=== PATIENT | female | born 1985 | race Caucasian/White ===

== ENCOUNTER 2017-09-09 12:00 | Inpatient (IN) | payer MEDICAID ==
[~2017-09-09] VITALS: Ht 167.6 cm; Wt 104.5 kg
[~2017-09-09 12:00] MED LIST: HYDR1TAB12 PO; IRON1TAB60 PO; LEVO50TA PO; PREN1TAB56 PO
[2017-09-10] MEDS ORDERED: OXYTOCIN 30U/ 0.9% NaCL 500ML 500 ML IV ONE (05:40)
[2017-09-10] MEDS ORDERED: OXYTOCIN 30U/ 0.9% NaCL 500ML 500 ML IV PRN (05:40)
[2017-09-10] MEDS ORDERED: NEWBORN KIT ONE (05:56)
[2017-09-10] MEDS ORDERED: ONDANSETRON 2MG/ML, 2ML IVPush PRN (06:00)
[2017-09-10] MEDS ORDERED: TERBUTALINE 1 MG/ML, 1ML IVPush PRN (06:00)
[2017-09-10] MEDS ORDERED: FENTANYL PF 100 MCG/2ML IVPush PRN (06:00)
[2017-09-10] MEDS ORDERED: CALCIUM CARBONATE 500 MG TAB.CHEW PO PRN ×2 (06:00→09:00)
[2017-09-10] MEDS ORDERED: FENTANYL PF 100 MCG/2ML IV PRN (06:00)
[2017-09-10] MEDS ORDERED: METOCLOPRAMIDE 5 MG/ML, 2ML IVPush PRN (06:00)
[2017-09-10] MEDS ORDERED: SODIUM CITRATE/CITRIC ACID 30 ML UDC PO PRN (06:00)
[2017-09-10 06:03] LABS: BASOPHILS # (AUTO) 0.02 x10^3/uL (0-0.1); BASOPHILS % (AUTO) 0 % (0-1); EOSINOPHILS # (AUTO) 0.06 x10^3/uL (0-0.4); EOSINOPHILS % (AUTO) 1 % (1-7); LYMPHOCYTES # (AUTO) 1.16 x10^3/uL (1-3.4); LYMPHOCYTES % (AUTO) 19 % (22-44); MD NO; MEAN CORPUSCULAR HEMOGLOBIN 33.5 pg (27.0-34.8); MEAN CORPUSCULAR HGB CONC 34.2 g/dL (32.4-35.8); MEAN CORPUSCULAR VOLUME 97.8 fL (80-100); MEAN PLATELET VOLUME 9.7 fL (7.4-10.4); MONOCYTES # (AUTO) 0.34 x10^3/uL (0.2-0.8); MONOCYTES % (AUTO) 6 % (2-9); NEUTROPHILS # (AUTO) 4.56 x10^3/uL (1.8-6.8); NEUTROPHILS % (AUTO) 74 % (42-75); PLATELET COUNT 133 x10^3/uL (130-400); RED BLOOD COUNT 4.23 x10^6/uL (3.82-5.3); RED CELL DISTRIBUTION WIDTH 13.9 % (9.6-15.2)
[2017-09-10] MEDS ORDERED: OXYTOCIN 30U/ 0.9% NaCL 500ML 500 ML ONE ×2 (06:11→21:07)
[2017-09-10] MEDS ORDERED: PLEASE ENTER HEIGHT AND WEIGHT MC SCH (07:00)
[2017-09-10] MEDS ORDERED: ACETAMINOPHEN 325 MG TABLET PO PRN ×2 (09:00)
[2017-09-10] MEDS ORDERED: ONDANSETRON 2MG/ML, 2ML IV PRN (09:00)
[2017-09-10] MEDS ORDERED: OXYcodone/APAP 5/325MG TABLET PO PRN ×2 (09:00)
[2017-09-10] MEDS ORDERED: MISOPROSTOL 200 MCG TABLET PR PRN (09:00)
[2017-09-10] MEDS ORDERED: MAGNESIUM HYDROXIDE 8%, 30ML UDC PO PRN (09:00)
[2017-09-10] MEDS ORDERED: DOCUSATE 100 MG CAPSULE PO PRN (09:00)
[2017-09-10] MEDS: PRENATAL VIT/IRON/FA 1 EACH TABLET PO SCH (09:00)
[2017-09-10] MEDS ORDERED: MEASLES,MUMPS&RUBELLA VACC/PF 0.5 ML SQ PRN (09:00)
[2017-09-10] MEDS ORDERED: DIPH,PERTUSS(ACELL),TET VAC/PF NC IM-VACC PRN (09:00)
[2017-09-10] MEDS ORDERED: RHOGAM FROM BLOOD BANK 1 NOTE EA IM/IV ONE (09:00)
[2017-09-10] MEDS: LACTATED RINGERS 1,000 ML IV SCH ×4 (09:59→21:56)
[2017-09-10] MEDS ORDERED: LACTATED RINGERS 1,000 ML INTUTE PRN (12:30)
[2017-09-10] MEDS ORDERED: LACTATED RINGERS 1,000 ML INTUTE SCH (12:30)
[2017-09-10] MEDS ORDERED: BUPIVACAINE/PF 0.25% ONE (13:54)
[2017-09-10] MEDS ORDERED: FENTANYL/BUPIV./NS/PF 250 ML EPIDCONT ONE (13:54)
[2017-09-10] MEDS ORDERED: FENTANYL/BUPIV./NS/PF 250 ML EPIDCONT SCH (13:56)
[2017-09-10] MEDS ORDERED: LACTATED RINGERS 1,000 ML IVBOLUS PRN (14:00)
[2017-09-10] MEDS ORDERED: NALOXONE 0.4 MG/ML, 1ML IVPush PRN (14:00)
[2017-09-10] MEDS ORDERED: EPHEDRINE 50 MG/ML, 1ML IVPush PRN (14:00)
[2017-09-10] MEDS ORDERED: LABETALOL 200 MG TABLET ONE (17:42)
[2017-09-10] MEDS: LABETALOL 200 MG TABLET PO SCH (17:44)
[2017-09-10] MEDS: D5%-LACTATED RINGERS 1,000 ML IV SCH ×2 (17:59→18:06)
[2017-09-10] MEDS: OXYTOCIN 30U/ 0.9% NaCL 500ML 500 ML IV SCH ×2 (18:44→21:12)
[2017-09-10] MEDS ORDERED: MISOPROSTOL 200 MCG TABLET ONE ×2 (19:10→22:14)
[2017-09-10] MEDS ORDERED: LIDOCAINE-MPF 1%, 5ML ONE (19:10)
[2017-09-10 19:41] VITALS: BP 132/78
[2017-09-10] MEDS ORDERED: IBUPROFEN 600 MG TABLET ONE (21:39)
[2017-09-10] MEDS: IBUPROFEN 600 MG TABLET PO PRN (21:41)
[2017-09-10 22:30] VITALS: BP 138/84
[2017-09-11] MEDS: D5%-LACTATED RINGERS 1,000 ML IV SCH ×2 (01:59→09:59)
[2017-09-11] MEDS: LACTATED RINGERS 1,000 ML IV SCH ×2 (01:59→09:59)
[2017-09-11] MEDS: IBUPROFEN 600 MG TABLET PO PRN ×2 (03:25→12:13)
[2017-09-11 03:29] VITALS: BP 142/89
[2017-09-11] MEDS: OXYTOCIN 30U/ 0.9% NaCL 500ML 500 ML IV SCH (04:42)
[2017-09-11 06:13] LABS: MEAN CORPUSCULAR HEMOGLOBIN 34.1 pg (27.0-34.8); MEAN CORPUSCULAR HGB CONC 34.5 g/dL (32.4-35.8); MEAN CORPUSCULAR VOLUME 99.1 fL (80-100); RED BLOOD COUNT 3.87 x10^6/uL (3.82-5.3); RED CELL DISTRIBUTION WIDTH 13.7 % (9.6-15.2)
[2017-09-11 06:46] LABS: BASOPHILS % (AUTO) 0 % (0-1); EOSINOPHILS % (AUTO) 0 % (1-7); LYMPHOCYTES # (AUTO) 0.44 x10^3/uL (1-3.4); LYMPHOCYTES % (AUTO) 5 % (22-44); MD SCAN; MEAN PLATELET VOLUME 9.9 fL (7.4-10.4); MONOCYTES # (AUTO) 0.41 x10^3/uL (0.2-0.8); MONOCYTES % (AUTO) 5 % (2-9); NEUTROPHILS % (AUTO) 91 % (42-75); PLATELET COUNT 108 x10^3/uL (130-400)
[2017-09-11 08:00] VITALS: BP 125/79
[2017-09-11] MEDS: PRENATAL VIT/IRON/FA 1 EACH TABLET PO SCH (08:18)
[2017-09-11] MEDS: LABETALOL 200 MG TABLET PO SCH ×2 (08:18→19:50)
[2017-09-11] MEDS ORDERED: IBUP-1222 PO (10:35)
[2017-09-11] MEDS ORDERED: LABE200T3 PO (10:36)
[2017-09-11 19:50] VITALS: BP 117/75
== END 2017-09-11 20:32 | disposition home or self-care (01) | DRG 775 ==
LOC: LDIP 09-10 05:31 → 2NW 09-10 23:01
PROVIDERS: ADMIT Obstetrics & Gynecology; ATTEND Obstetrics & Gynecology
PROC: 10E0XZZ Delivery of Products of Conception, External Approach (ICD-10-PCS; principal; 2017-09-10)
PROC: 3E033VJ Introduction of Other Hormone into Peripheral Vein, Percutaneous Approach (ICD-10-PCS; 2017-09-10)
PROC: 10907ZC Drainage of Amniotic Fluid, Therapeutic from Products of Conception, Via Natural or Artificial Opening (ICD-10-PCS; 2017-09-10)
PROC: 3E0R3BZ Introduction of Anesthetic Agent into Spinal Canal, Percutaneous Approach (ICD-10-PCS; 2017-09-10)
PROC: 00HU33Z Insertion of Infusion Device into Spinal Canal, Percutaneous Approach (ICD-10-PCS; 2017-09-10)
DX: O36.5930 Maternal care for other known or suspected poor fetal growth, third trimester, not applicable or unspecified (principal); O13.4 Gestational [pregnancy-induced] hypertension without significant proteinuria, complicating childbirth; Z37.0 Single live birth; O69.81X0 Labor and delivery complicated by cord around neck, without compression, not applicable or unspecified; Z3A.38 38 weeks gestation of pregnancy; Z23 Encounter for immunization
CPT/HCPCS: 36415; 82803; 85025; 86850; 86900; J2590; J3010; J7120; J7121